=== PATIENT | female | born 1990 | race Asian ===

== ENCOUNTER 2023-03-13 20:19 | Emergency (ER) | payer BC ==
[~2023-03-13] VITALS: Ht 157.5 cm; Wt 54.4 kg
--- NOTE | 2023-03-13 22:04 | NUR ---
BIBSELF FROM HOME C/O RLE SWELLING & DISCOMFORT SINCE LAST FRIDAY. AWAKE AND ALERT X4 RR EVEN AND UNLABORED. PULSES INTACT BILATERAL LOWER EXTREMITY.
--- NOTE | 2023-03-13 22:06 | NUR ---
US TECH AT BEDSIDE
[2023-03-13] MEDS ORDERED: KETOROLAC TROMETHAMINE INJ 60 MG/2 ML VIAL IM ONE (22:30)
[2023-03-13] MEDS ORDERED: KETOROLAC TROMETHAMINE INJ 30 MG/ML VIAL ONE (22:30)
[2023-03-13] MEDS ORDERED: NAPR500T6 PO (22:39)
--- NOTE | 2023-03-13 22:54 | NUR ---
Patient discharged to home in stable condition. Written and verbal after care instructions given. Patient verbalizes understanding of instruction.
[2023-03-13 22:56] VITALS: BP 131/71
== END 2023-03-13 22:57 | disposition home or self-care (01) ==
LOC: ER 20:21
DX: M79.661 Pain in right lower leg (principal); M79.89 Other specified soft tissue disorders; Z60.2 Problems related to living alone
CPT/HCPCS: 99285; 93971; 96372; J1885